=== PATIENT | male | born 1975 | race American Indian/Alaskan Native ===

== ENCOUNTER 2016-10-08 14:42 | Emergency (ER) | payer BC ==
[2016-10-08 14:50] VITALS: BMI 23.0
[2016-10-08 14:53] VITALS: TEMP 98.5
--- NOTE | 2016-10-08 15:01 | C.PDOC ---
Time Seen by Provider: 10/08/16 14:58 Chief Complaint (Nursing): Eye Problem Past Medical History Vital Signs: Last Vital Signs Temp 98.5 F 10/08/16 14:50 Pulse 94 H 10/08/16 14:50 Resp 16 10/08/16 14:50 BP 153/102 H 10/08/16 14:50 Pulse Ox 95 10/08/16 14:50 - Medical History PMH: HTN Family History: States: Unknown Family Hx - Social History Hx Alcohol Use: Yes Hx Substance Use: Yes - Immunization History Hx Tetanus Toxoid Vaccination: No Hx Influenza Vaccination: No Hx Pneumococcal Vaccination: No ED Course And Treatment O2 Sat by Pulse Oximetry: 95
--- NOTE | 2016-10-08 15:07 | C.PDOC ---
History Of Present Illness 41 yr old male presents to the ER with complaints of right facial and nose laceration, sustained [employer]. Patient states he hit a metal edge while at work, sustaining a cut to the top right cheek and his nose. Patient denies eye injury , vision changes, nausea, vomiting, headache, dizziness, weakness or numbness. Time Seen by Provider: 10/08/16 14:58 Chief Complaint (Nursing): Eye Problem History Per: Patient History/Exam Limitations: no limitations Onset/Duration Of Symptoms: Sudden Onset ([employer]) Past Medical History Reviewed: Historical Data, Nursing Documentation, Vital Signs Vital Signs: Last Vital Signs Temp 98.5 F 10/08/16 14:50 Pulse 89 10/08/16 15:31 Resp 18 10/08/16 15:31 BP 142/89 10/08/16 15:31 Pulse Ox 98 10/08/16 15:31 - Medical History PMH: HTN Family History: States: No Known Family Hx - Social History Hx Alcohol Use: Yes Hx Substance Use: Yes - Immunization History Hx Tetanus Toxoid Vaccination: No Hx Influenza Vaccination: No Hx Pneumococcal Vaccination: No Review Of Systems Except As Marked, All Systems Reviewed And Found Negative. Eyes: Negative for: Vision Change Gastrointestinal: Negative for: Nausea, Vomiting Skin: Positive for: Other ((+) Right facial and nose laceration. ) Neurological: Negative for: Weakness, Numbness, Headache, Dizziness Physical Exam - Physical Exam Appears: Non-toxic, No Acute Distress Skin: Warm, Dry, No Rash, Other ((+) 3.5 cm linear laceration below the right eye, with avulsion to the lateral end. 1cm abrasion to the proximal nose bridage. No FB. ) Head: Atraumatic, Normacephalic Eye(s): bilateral: PERRL, EOMI Nose: No Discharge Oral Mucosa: Moist Neck: Normal, Normal ROM, Supple Chest: Symmetrical, No Tenderness Cardiovascular: Rhythm Regular, No Murmur Respiratory: Normal Breath Sounds, No Rales, No Rhonchi, No Stridor, No Wheezing Extremity: Normal ROM, No Swelling Neurological/Psych: Oriented x3, Normal Speech, Normal Motor ED Course And Treatment O2 Sat by Pulse Oximetry: 95 Laceration - Laceration Repair No standard instances Wound Length (In cm): 3.5 Description Of Wound: Linear, Clean, Contused Tissue Wound Cleansed With: Sterile Saline Wound Examination: Irrigated With Saline (steristrips applied. ) Medical Decision Making Medical Decision Making: NOTE: Steri strips applied. Poor candidates for dermabond due to proximity to the eye. Advised patient to avoid the sun and use sun screen and keep area covered for minimal scaring. Disposition Counseled Patient/Family Regarding: Diagnosis, Need For Followup - Disposition Referrals: [facility] [Outside] [facility] [Outside] Disposition: HOME/ ROUTINE Disposition Time: 15:08 Condition: IMPROVED Additional Instructions: keep area covered, use sunscreen and avoid sun to limit care home scarring. Tylenol and/or Motrin as directed for pain as needed. Instructions: Steristrips (ED) Forms: Work Excuse - Clinical Impression Clinical Impression: Facial laceration, Nose abrasion - Scribe Statement The provider has reviewed the documentation as recorded by the Joyceibe Karma [place] Provider Attestation: All medical record entries made by the Scribe were at my direction and personally dictated by me. I have reviewed the chart and agree that the record accurately reflects my personal performance of the history, physical exam, medical decision making, and the department course for this patient. I have also personally directed, reviewed, and agree with the discharge instructions and disposition.
[2016-10-08 15:38] VITALS: BP 142/89; PULSE 89; RESP 18
[2016-10-10 09:28] VITALS: O2SAT 95
== END 2016-10-08 15:32 | disposition home or self-care (01) ==
LOC: C.ER 14:42
DX: S01.411A Laceration without foreign body of right cheek and temporomandibular area, initial encounter (principal); S00.31XA Abrasion of nose, initial encounter; W22.8XXA Striking against or struck by other objects, initial encounter; Y92.89 Other specified places as the place of occurrence of the external cause; Y99.0 Civilian activity done for income or pay

== ENCOUNTER 2017-09-03 13:11 | Emergency (ER) | payer BC ==
[2017-09-03 13:11] VITALS: BMI 23.0
[2017-09-03 13:20] VITALS: TEMP 98.1; O2SAT 99
[2017-09-03 14:06] VITALS: BP 144/84; PULSE 71; RESP 18
--- NOTE | 2017-09-03 14:06 | C.PDOC ---
History Of Present Illness 42 y/o male c/o pain to left nasal passage x 5 days with nasal discharge, hard and dry, occasionally blood tinged. pt taking sudafed for this. pt reports tactile temperature several days ago. Time Seen by Provider: 09/03/17 13:29 Chief Complaint (Nursing): Medical Clearance History Per: Patient History/Exam Limitations: no limitations Onset/Duration Of Symptoms: Days (5) Current Symptoms Are (Timing): Still Present Severity: Moderate Past Medical History Reviewed: Historical Data, Nursing Documentation, Vital Signs Vital Signs: Last Vital Signs Temp 98.1 F 09/03/17 13:16 Pulse 71 09/03/17 14:05 Resp 18 09/03/17 14:05 BP 144/84 09/03/17 14:05 Pulse Ox 99 09/03/17 14:17 - Medical History PMH: HTN Family History: States: Unknown Family Hx - Social History Hx Tobacco Use: Yes Hx Alcohol Use: Yes Hx Substance Use: Yes - Immunization History Hx Tetanus Toxoid Vaccination: No Hx Influenza Vaccination: No Hx Pneumococcal Vaccination: No Review Of Systems Constitutional: Positive for: Fever (tactile) ENT: Positive for: Nose Pain, Nose Discharge. Negative for: Ear Pain, Ear Discharge, Throat Pain Respiratory: Negative for: Cough, Shortness of Breath Skin: Negative for: Rash Neurological: Negative for: Weakness, Numbness Physical Exam - Physical Exam Appears: Non-toxic, No Acute Distress Skin: Warm, Dry Head: Atraumatic, Normacephalic Eye(s): bilateral: Normal Inspection Ear(s): Bilateral: Normal Nose: No Epistaxis, Other (turbinates in left nares swollen and erythematous with white discharge in nose. ) Oral Mucosa: Moist Throat: No Erythema, No Exudate Neck: Supple Lymphatic: Adenopathy (small tender left submandibular node. ) Cardiovascular: Rhythm Regular, No Murmur Respiratory: No Decreased Breath Sounds, No Wheezing Neurological/Psych: Oriented x3, Normal Speech, Normal Cognition ED Course And Treatment O2 Sat by Pulse Oximetry: 99 Medical Decision Making Medical Decision Making: pt with pain in left nares, with erythema, ?purulent discharge vs nasal secretions. d/c with augmentin and ent f/u Disposition Counseled Patient/Family Regarding: Diagnosis, Need For Followup, Rx Given - Disposition Referrals: Jose Antonio Nelson MD [Staff Provider] - Disposition: HOME/ ROUTINE Disposition Time: 14:13 Condition: GOOD Additional Instructions: Please take antibiotics as prescribed; they make upset your stomach a little. Take Tylenol or Ibuprofen for pain. Follow up with Dr Nelson next week- call for an appointment. Return to ER for any worsening symptoms. Prescriptions: Amoxicillin/Clavulanate [Augmentin 875 MG-125 MG] 1 tab PO BID #20 tab Forms: General Discharge Instructions, [facility] (Indonesian), Work Excuse - Clinical Impression Clinical Impression: Infection of nose
== END 2017-09-03 14:20 | disposition home or self-care (01) ==
LOC: C.ER 13:11
DX: J32.9 Chronic sinusitis, unspecified (principal)

== ENCOUNTER 2017-09-21 10:36 | Emergency (ER) | payer BC ==
[2017-09-21 10:39] VITALS: BMI 25.1
[2017-09-21 10:43] VITALS: BP 143/78; RESP 18; TEMP 98.7; O2SAT 98
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
[2017-09-21 13:41] VITALS: PULSE 90
== END 2017-09-21 13:41 | disposition home or self-care (01) ==
LOC: C.ER 10:36
DX: R51 Headache (principal); R09.81 Nasal congestion